=== PATIENT | male | born 2000 | race Two or more races ===

== ENCOUNTER 2024-12-11 19:42 | Inpatient (IN) | payer OTHER ==
[~2024-12-11] VITALS: Ht 177.8 cm; Wt 88.0 kg
[~2024-12-11 19:42] MED LIST: DOXE25CA PO; SERT50TA29 PO
[2024-12-11 20:07] LABS: BASO # 0.0 10^3/uL (0.0-0.2); BASO % 0.5 % (0.0-1.0); EOS # 0.2 10^3/uL (0.0-0.5); EOS % 1.8 % (0.0-3.0); LYMPH # 1.9 10^3/uL (1.5-5.0); LYMPH % 22.5 % (24.0-44.0); MONO # 0.6 10^3/uL (0.0-0.8); MONO % 7.5 % (2.0-8.0); NEUTROPHILS # 5.7 10^3/uL (1.5-8.5); NEUTROPHILS % 67.5 % (36.0-66.0); PLATELET COUNT, AUTOMATED 232 10^3/uL (150-450)
[2024-12-11] MEDS ORDERED: ISOVUE-370 76% 100 ML VIAL As Ordered ONE (20:21)
[2024-12-11 20:28] LABS: ETHYL ALCOHOL (ETHANOL) < 0.003 % (0.000-0.010)
[2024-12-11 20:29] LABS: SALICYLATE LEVEL < 3.0 MG/DL (<30)
[2024-12-11 20:30] LABS: ALT/SGPT 26 U/L (7.0-40); AST/SGOT 21 U/L (<34); CALCIUM LEVEL 9.1 MG/DL (8.5-10.1); CARBON DIOXIDE LEVEL 26 MMOL/L (20-31); CHLORIDE LEVEL 109 MMOL/L (98-107); CREATININE FOR GFR 0.80 MG/DL (0.70-1.30); GLOMERULAR FILTRATION RATE > 90.0 (>60); POTASSIUM SERUM 3.6 MMOL/L (3.5-5.1); SODIUM LEVEL 145 MMOL/L (136-145)
[2024-12-11 20:34] LABS: CPK CREATINE PHOSPHOKINASE 206 U/L (46-171)
[2024-12-11] MEDS: NS (Normal Saline) 0.9% 1,000 ML IV ONE (21:50)
[2024-12-11 22:15] LABS: AMPHETAMINES LEVEL URINE NEGATIVE (NEGATIVE); BARBITURATES URINE NEGATIVE (NEGATIVE)
[2024-12-11 22:16] LABS: BENZODIAZEPINES URINE NEGATIVE (NEGATIVE); CANNABINOIDS URINE NEGATIVE (NEGATIVE); COCAINE METABOLITE URINE NEGATIVE (NEGATIVE); METHADONE URINE NEGATIVE (NEGATIVE); OPIATES URINE NEGATIVE (NEGATIVE); PHENCYCLIDINE URINE NEGATIVE (NEGATIVE)
[2024-12-12] MEDS ORDERED: MOM 30 ML SUSPENSION UDC PO PRN (00:45)
[2024-12-12] MEDS ORDERED: traZODone 50 MG TAB PO PRN (00:45)
[2024-12-12] MEDS ORDERED: ACETAMINOPHEN 325 MG TAB PO PRN (00:45)
[2024-12-12] MEDS ORDERED: MAALOX 30 ML SUSP *UDC PO PRN (00:45)
[2024-12-12] MEDS: SERTRALINE HCL 50 MG TAB PO ONE (01:04)
[2024-12-12 01:20] VITALS: BP 138/82; TEMP 97.2; O2SAT 99
[2024-12-12] MEDS ORDERED: DOXE25CA PO (02:37)
[2024-12-12] MEDS ORDERED: SERT-141 PO (02:37)
[2024-12-12] MEDS ORDERED: HOME MED LIST COMPLETE! XX SCH (02:40)
[2024-12-12 06:33] VITALS: BP 108/58; TEMP 97.6; O2SAT 100
[2024-12-12] MEDS: SERTRALINE 100 MG TAB PO SCH (13:35)
[2024-12-12 15:13] VITALS: BP 102/71; TEMP 98.6; O2SAT 99
[2024-12-12] MEDS: DOXEPIN 25 MG CAP PO SCH (20:21)
[2024-12-13 06:50] VITALS: BP 114/56; TEMP 97.8; O2SAT 99
[2024-12-13 14:56] VITALS: BP 130/70; TEMP 97.8; O2SAT 99
[2024-12-14 06:17] VITALS: BP 154/64; TEMP 97.8; O2SAT 100
[2024-12-14 16:07] VITALS: BP 143/89; TEMP 98.8; O2SAT 100
[2024-12-15 06:31] VITALS: BP 130/57; TEMP 99.1; O2SAT 100
[2024-12-15 14:49] VITALS: BP 141/65; TEMP 98.5; O2SAT 99
[2024-12-16 06:24] VITALS: BP 133/62; TEMP 97.2; O2SAT 100
[2024-12-16] MEDS: SERTRALINE HCL 25 MG TABLET PO SCH (08:06)
[2024-12-16] MEDS: SERTRALINE 100 MG TAB PO SCH (08:07)
[2024-12-16] MEDS: IBUPROFEN 400 MG TAB PO PRN (14:38)
[2024-12-16 17:28] VITALS: BP 144/85; TEMP 98.2
[2024-12-17 06:23] VITALS: BP 138/73; TEMP 97.9; O2SAT 99
[2024-12-17] MEDS ORDERED: SERT25TA21 PO (07:59)
[2024-12-17] MEDS ORDERED: ZOLO100T PO (07:59)
[2024-12-17] MEDS ORDERED: DOXE25CA PO (07:59)
== END 2024-12-17 11:35 | disposition home or self-care (01) | DRG 885 ==
LOC: EDBD 19:42 → M ED 19:42 → M ED INP 12-12 00:43 → M PSY 12-12 01:13
PROVIDERS: ADMIT Student in an Organized Health Care Education/Training Program; ATTEND Student in an Organized Health Care Education/Training Program
DX: F33.1 Major depressive disorder, recurrent, moderate (principal); F41.9 Anxiety disorder, unspecified; Z91.51 Personal history of suicidal behavior; Z79.899 Other long term (current) drug therapy